=== PATIENT | male | born 1965 | race Caucasian/White ===

== ENCOUNTER 2020-01-13 12:25 | Emergency (ER) | payer OTHER ==
[2020-01-13 13:03] VITALS: BP 147/88; PULSE 72; TEMP 98.7; BMI 32.8
[2020-01-13 14:05] LABS: BASO % 0.4 % (0-2.0); EOS % 3.2 % (0-4.5); HEMATOCRIT 38.5 % (35.4-49); HEMOGLOBIN 12.7 GM/dl (11.7-16.9); LYMPH % 34.5 % (8-40); MCH 28.3 pg (25.7-33.7); MEAN CELL VOLUME 85.9 fl (80-96); MEAN PLT VOLUME 9.4 fl (7.5-11.1); MONO % 8.4 % (3.8-10.2); NEUT % 53.5 % (42.8-82.8); PLATELET COUNT 206 K/MM3 (134-434); RBC 4.49 M/mm3 (4.00-5.60); RDW 12.8 % (11.9-15.9); WHITE BLOOD COUNT 6.1 K/mm3 (4.0-10.8)
[2020-01-13 14:06] LABS: ALBUMIN 3.6 g/dl (3.4-5.0); BILIRUBIN,TOTAL 0.5 mg/dl (0.2-1); CALCIUM 9.1 mg/dl (8.5-10); CREATININE 0.8 mg/dl (0.55-1.3); POTASSIUM 4.1 mmol/L (3.5-5.1)
== END 2020-01-13 16:09 | disposition home or self-care (01) ==
LOC: FER 12:25
DX: K57.92 Diverticulitis of intestine, part unspecified, without perforation or abscess without bleeding (principal)
CPT/HCPCS: 36415; 74177-TC; 80053; 81003; 83605; 85025; 87086; 99284-25

== ENCOUNTER 2021-08-21 11:01 | Emergency (ER) | payer OTHER ==
[2021-08-21 11:16] VITALS: BMI 23.1
[2021-08-21] MEDS ORDERED: ACETAMINOPHEN 325 MG TABLET (FP) PO ONE (12:57)
[2021-08-21] MEDS ORDERED: ACETAMINOPHEN 325 MG TABLET (FP) ONE (13:23)
[2021-08-21 15:26] LABS: BASO % 0.2 % (0-2.0); EOS % 0.5 % (0-4.5); HEMATOCRIT 40.9 % (35.4-49); HEMOGLOBIN 13.5 GM/dL (11.7-16.9); LYMPH % 30.7 % (8-40); MCH 28.1 pg (25.7-33.7); MCHC 32.9 g/dl (32.0-35.9); MEAN CELL VOLUME 85.3 fl (80-96); MEAN PLT VOLUME 9.6 fl (7.5-11.1); MONO % 8.1 % (3.8-10.2); NEUT % 60.5 % (42.8-82.8); PLATELET COUNT 232 10^3/uL (134-434); URINE APPEARANCE CLEAR; URINE BILIRUBIN NEGATIVE (NEGATIVE); URINE COLOR YELLOW; URINE GLUCOSE (UA) NEGATIVE (NEGATIVE); URINE KETONE NEGATIVE (NEGATIVE); URINE LEUK ESTERASE NEGATIVE (NEGATIVE); URINE NITRITE NEGATIVE (NEGATIVE); URINE PROTEIN NEGATIVE (NEGATIVE); URINE UROBILINOGEN 0.2 mg/dL (0.2-1.0); WHITE BLOOD COUNT 7.3 K/mm3 (4.0-10.0)
[2021-08-21 15:49] LABS: ALBUMIN 3.8 g/dl (3.4-5.0); BLOOD UREA NITROGEN 16.2 mg/dL (7-18); CALCIUM 9.6 mg/dL (8.5-10.1)
[2021-08-21 15:52] LABS: CREATININE 0.7 mg/dL (0.55-1.3)
[2021-08-21 15:54] LABS: BILIRUBIN,TOTAL 0.4 mg/dL (0.2-1); TOT PROT 7.9 g/dl (6.4-8.2)
[2021-08-21 16:48] VITALS: BP 138/80; PULSE 68; TEMP 97.2
[2021-08-21] MEDS ORDERED: AMOX TR/POT CLAV 875MG/125MG TABLETS (FP) PO ONE (16:58)
[2021-08-21] MEDS ORDERED: AMOX TR/POT CLAV 875MG/125MG TABLETS (FP) ONE (17:02)
== END 2021-08-21 17:14 | disposition home or self-care (01) ==
LOC: JER 11:01
DX: S09.90XA Unspecified injury of head, initial encounter (principal); K57.92 Diverticulitis of intestine, part unspecified, without perforation or abscess without bleeding; H11.31 Conjunctival hemorrhage, right eye; K76.0 Fatty (change of) liver, not elsewhere classified; W22.8XXA Striking against or struck by other objects, initial encounter
CPT/HCPCS: 36415; 70450-TC; 71046-TC-FY; 73030-TC-LT-FY; 74176-TC; 80053; 81003; 85025; 93005; 93010; 99285-25

== ENCOUNTER 2022-03-06 11:28 | Inpatient (IN) | payer OTHER ==
[2022-03-06] MEDS ORDERED: ASPIRIN 81 MG CHEWABLE TABLETS PO ONE (12:13)
[2022-03-06] MEDS ORDERED: ASPIRIN 81 MG CHEWABLE TABLETS ONE (12:42)
[2022-03-06 12:48] LABS: HEMATOCRIT 37.6 % (35.4-49); HEMOGLOBIN 12.7 G/dL (11.7-16.9); MCH 28.8 pg (25.7-33.7); MCHC 33.8 g/dl (32.0-35.9); MEAN CELL VOLUME 85.2 fl (80-96); MEAN PLT VOLUME 9.6 fl (7.5-11.1); PLATELET COUNT 204.7 10^3/uL (134-434); RBC 4.41 10^6/uL (4.00-5.60); RDW 14.3 % (11.9-15.9); WHITE BLOOD COUNT 7.2 10^3/uL (4.0-10.8)
[2022-03-06 12:55] LABS: ALBUMIN 3.6 g/dl (3.4-5.0); BILIRUBIN,TOTAL 0.3 mg/dl (0.2-1); CREATININE 0.8 mg/dl (0.55-1.3); TOT PROT 6.8 g/dl (6.4-8.2)
[2022-03-06 13:18] LABS: PLATELET ESTIMATE ADEQUATE
[2022-03-06] MEDS ORDERED: HEPARIN - 25,000 UNIT in SODIUM CHLORIDE 495 ML IV SCH (16:00)
[2022-03-06] MEDS ORDERED: HEPARIN NA (PORCINE) 5,000 UNITS/ML 1ML VIAL IVPUSH ONE (16:00)
[2022-03-06] MEDS ORDERED: HEPARIN NA (PORCINE) 5,000 UNITS/ML 1ML VIAL ONE (16:17)
[2022-03-06] MEDS ORDERED: HEPARIN INFUSION - 25,000 UNITS/500 ML INFUS.BAG IVPB ONE (16:17)
[2022-03-06] MEDS ORDERED: CLOPIDOGREL BISULFATE 300 MG TABLET PO ONE (16:47)
[2022-03-06] MEDS ORDERED: ATORVASTATIN CA 80 MG TABLET (FP) PO ONE (16:47)
[2022-03-06] MEDS ORDERED: CLOPIDOGREL BISULFATE 300 MG TABLET ONE (17:03)
[2022-03-06] MEDS ORDERED: ATORVASTATIN CA 80 MG TABLET (FP) ONE (17:03)
[2022-03-06 21:34] VITALS: BMI 31.4
[2022-03-06 22:49] VITALS: BP 130/73; PULSE 62; RESP 18; TEMP 98.6
[2022-03-07] MEDS ORDERED: CLOPIDOGREL BISULFATE 75 MG TABLET (FP) PO SCH (10:00)
[2022-03-07] MEDS ORDERED: ASPIRIN COATED 81 MG TABLET.EC PO SCH (10:00)
[2022-03-07] MEDS ORDERED: ATORVASTATIN CA 80 MG TABLET (FP) PO SCH (22:00)
== END 2022-03-06 22:30 | disposition short-term general hospital (02) | DRG 282 ==
LOC: FER 11:28 → FM/S 14:39
PROVIDERS: ADMIT Internal Medicine
DX: I21.4 Non-ST elevation (NSTEMI) myocardial infarction (principal); I10 Essential (primary) hypertension; E11.9 Type 2 diabetes mellitus without complications; E78.5 Hyperlipidemia, unspecified
CPT/HCPCS: 0241U-QW; 36415; 71046-TC-FY; 80053; 84484; 85027; 93005; 99285-25; J1644